=== PATIENT | male | born 1960 | race African-American/Black ===

== ENCOUNTER 2017-10-15 21:45 | Emergency (ER) | payer MEDICAID ==
[~2017-10-15] VITALS: Ht 172.7 cm; Wt 74.8 kg
[2017-10-16] MEDS ORDERED: DIPHENHYDRAMINE 25MG CAPSULE PO ONE (00:45)
[2017-10-16] MEDS ORDERED: METOCLOPRAMIDE HCL 5MG TABLET PO ONE (00:45)
[2017-10-16] MEDS ORDERED: ACETAMINOPHEN 325MG TABLET PO ONE (00:45)
[2017-10-16 02:22] VITALS: BP 131/97
== END 2017-10-16 03:09 | disposition home or self-care (01) ==
LOC: ER 21:45
DX: R51 Headache (principal)
CPT/HCPCS: 99284; J8597; Q0163

== ENCOUNTER 2017-10-16 07:47 | Emergency (ER) | payer MEDICAID ==
[~2017-10-16] VITALS: Ht 175.3 cm; Wt 75.0 kg
[2017-10-16 08:14] VITALS: BP 154/92
== END 2017-10-16 14:39 | disposition home or self-care (01) ==
LOC: ER 07:47
DX: I10 Essential (primary) hypertension (principal); G43.909 Migraine, unspecified, not intractable, without status migrainosus; F17.200 Nicotine dependence, unspecified, uncomplicated; Z59.0 Homelessness
CPT/HCPCS: 99283